=== PATIENT | female | born 1985 | race Caucasian/White ===

== ENCOUNTER 2017-04-25 16:54 | Outpatient (CLI) | payer OTHER | END 2017-04-25 23:00 | LOC: LAB SRH 16:54 | DX: Z34.80 Encounter for supervision of other normal pregnancy, unspecified trimester (principal) | CPT/HCPCS: 90004; 90074; 90078; 90148; 90261; 90364; 90469; 90599; 90600; 90605; 90606; 90710; 90851; 92863; 93140; 98480; 99777 ==

== ENCOUNTER 2017-06-04 22:16 | Emergency (ER) | payer OTHER ==
--- NOTE | 2017-06-04 23:58 | ED NURSING NOTES ---
Clinical Report - Nurses Formerly [facility] [address] [place] [address] 06/04/2017 22:18 Patient: GURU GIPSON TRIAGE Triage time 22:25. Acuity: LEVEL 3. Chief Complaint: FEVER, CHILLS and "NOT FEELING WELL" and FATIGUE. --22:34 Arline Hurtado R.N. 22:25 06/04/17. BP: 101/62 taken on the left arm, while lying. HR: 80 (regular and normal rate). RR: 18 (regular and unlabored). O2 saturation: 98% on room air. Temp: 98.6 F (oral). Pain level now: 04/07. --22:34 Arline Hurtado R.N. Weight: 50.3 kg stated. Height/Length: 59 inches Per Patient. BMI: 22.4. --22:30 Arline Hurtado R.N. Medications None. --22:32 Arline Hurtado R.N. Allergies Aspirin. Definite Severe(dizziness) --22:32 Arline Hurtado R.N. History Arrived by private vehicle. Historian: patient. Accompanied by family. Primary physician (wyatt). This started today. ( tired, chills, abd pain, frequent urination, 102.9 temp at 730 pm took tylenol). She has had a mild, dull, pressure-like frontal headache. The headache has been associated with nausea. The patient has a history of migraine headaches. She has had abdominal pain. ( low back pain). 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 PAST MEDICAL HX: Immunizations: up-to-date. Last normal menstrual period- February 2017. 2. Para 1. Currently : LNMP: February 2017 EDC: Dec 07, 2017. In 2nd trimester. confirmed with sonogram. Has had care by pst specialist. G 2. P 1. SOCIAL HX: Smoker- current status unknown. No alcohol use or drug use. No infectious disease exposure. No known contact with a sick individual. ABUSE ASSESSMENT: No report of abuse. SELF HARM ASSESSMENT: A self harm assessment was performed. The patient answered "no" to the question "Have you recently felt down, depressed, or hopeless?", "Have you noticed less interest or pleasure in doing things?", "Do you have thoughts of harming or killing yourself?", "Are you here because you tried to hurt yourself?", "Have you ever tried to hurt yourself before today?", "Have you recently had thoughts about harming or killing others?" and "Do you have any dangerous items in your possession?". FALL RISK ASSESSMENT: Fall risk assessment completed. No fall risk identified. NUTRITIONAL RISK ASSESSMENT: The nutritional risk assessment revealed no deficiencies. FUNCTIONAL ASSESSMENT: Functional assessment: no impairments noted. LEARNING NEEDS ASSESSMENT: The learning needs assessment revealed no barriers. --22:34 Arline Hurtado R.N. PROBLEMS: Dental Pain. Dental Caries. Contusion. LNMP - Last Normal Menstrual Period. --22:32 Arline Hurtado R.N. ADDITIONAL SURGERIES: Appendectomy. . --22:32 Arline Hurtado R.N. Interventions ID band on patient. To treatment room. --22:34 Arline Hurtado R.N. PHYSICAL ASSESSMENT Ambulatory to room. GENERAL / NEURO / PSYCH: Alert. Oriented X 4. Appears in pain. HEENT: Pupils equal, round and reactive to light. Mucous membranes are pink. RESPIRATORY: Respirations not labored. Chest nontender. Breath sounds within normal limits. CVS: Normal sinus rhythm noted. Capillary refill less than 2 seconds. Pulses within normal limits. GI / : Abdomen soft and normal bowel sounds. Abdominal tenderness in the suprapubic area. SKIN: Skin intact. Skin is warm and dry. Normal skin turgor. --22:35 Arline Hurtado R.N. NURSING PROGRESS NOTES Pulse oximeter and NIBP monitor placed on patient. Patient gowned. Reassurance given to the patient. Two patient identifiers checked. Call light placed in reach. Side rails up x 1. Bed placed in lowest position. Brakes of bed on. Patient ready for evaluation- chart flagged. --22:35 Arline Hurtado R.N. Patient ID band checked for patient name and birthdate: patient confirmed. Instructions provided to collect clean catch urine and patient verbalized understanding. Clean catch urine collected with return of yellow-colored cloudy urine; sample sent to lab for urinalysis and culture. Specimen labeled in the presence of the patient. --22:36 Arline Hurtado R.N. 22:48 06/04/2017 Site #1 started via IV in the right antecubital space with an 20g angiocath, with aseptic technique and good blood return; one attempt. Blood drawn: rainbow set. Labeled in the presence of the patient and sent to the lab. Saline lock flushed with 10 mL saline. --22:55 Arline Hurtado R.N. 22:50 06/04/2017 Started bag #1 1000 mL IV Fluids IV NS (Saline); bolus of 1000 mL wide open then over 1 hour(s) via site #1. Allergies verified and confirmed 5 rights. IV patency established. IV site checked: no pain, redness, or swelling. IV flushed thoroughly pre- and post-medication administration. --22:55 Arline Hurtado R.N. 23:50 06/04/2017 IV Fluids IV NS Discontinued: bag #1. Total amount infused: 1000 mL. --00:14 Coreen Funes 00:13 06/05/2017 Started 1 gm of Ceftriaxone IVPB in bag #1 50 mL; at 150 mL/hr over 20 minute(s) via site #1 via IV pump. Allergies verified and confirmed 5 rights. IV patency established. IV site checked: no pain, redness, or swelling. IV flushed thoroughly pre- and post-medication administration. --00:13 Coreen Funes 00:23 06/05/2017 Ceftriaxone IVPB Discontinued: bag #1. Total amount infused: 50 mL. --00:35 Coreen Funes 00:35 06/05/2017 Site #1 removed upon discharge. Catheter intact. Pressure dressing applied. --00:35 Coreen Funes. DISPOSITION / DISCHARGE 00:37 06/05/17. Departure time: 00:Jun 05 2017. Condition at departure: improved. The goals identified in the patient's plan of care were met. No learning barriers present. Discharge instructions provided and reviewed with the patient. Reviewed warnings (Patient verbalized awareness of warning s/sx listed in dc paperwork.). Reviewed medication(s) side effects, precautions, dosing and course information. Prescription(s) given to the patient (Keflex.). Treatments reviewed. Reviewed referral to a primary care physician for followup. Patient verbalized understanding. Written instructions provided in Yoruba. The patient was discharged by the physician. She was discharged home and accompanied by family. She left the Emergency Department ambulatory and via private vehicle. Patient driving. FALL RISK ASSESSMENT: Fall risk assessment completed. No fall risk identified. --00:37 Coreen Funes 00:35 06/05/17. BP: 91/51. HR: 67. RR: 17. O2 saturation: 98%. Temp: 98.4 F. Pain level now: 0. --00:37 Coreen Funes. Locked/Released at 06/05/2017 0:39 by Coreen Funes,
--- NOTE | 2017-06-04 23:58 | ED CLINICAL REPORT ---
Clinical Report - Physicians/Mid Levels [facility] [address] [place] [address] 06/04/2017 22:18 Patient: GURU GIPSON Time Seen: 22:23; initial patient contact. Arrived- By private vehicle. Historian- patient. HISTORY OF PRESENT ILLNESS Chief Complaint: FEVER. Temperature treated prior to arrival with tylenol. This started today and is still present. She has had measured fever of 102.9 F orally. No muscle aches, dyspnea, cough, decreased oral intake or diarrhea. She has had fatigue. No decreased urine output. Additional history - No known contact with a sick individual. Has not recently been ill. She is not immunocompromised. Similar symptoms previously: None. Recent medical care: Not recently seen/assessed. REVIEW OF SYSTEMS No nausea, constipation, flank pain or vomiting. She has had abdominal pain, pelvic pain and difficulty with urination. The patient has had urinary frequency. All systems otherwise negative, except as recorded above. PAST HISTORY Dental Pain. Dental Caries. Contusion. ADDITIONAL SURGERIES: Appendectomy. . SOCIAL HISTORY Smoker - current status unknown. No alcohol use or drug use. ADDITIONAL NOTES The nursing notes have been reviewed. PHYSICAL EXAM Vital Signs: 06/04/2017 22:25 BP: 101/62. HR: 80. RR: 18. O2 saturation: 98%. Temp: 98.6 F. Pain level now: 5/10. Have been reviewed as normal. Appearance: Alert. No acute distress. Eyes: Eyes normal inspection. ENT: Dry mucous membranes present. CVS: Normal heart rate and rhythm. Heart sounds normal. Respiratory: No respiratory distress. Breath sounds normal. Abdomen: Soft. Mild tenderness in the suprapubic area. No guarding or rebound tenderness. Bowel sounds normal. No mass. Back: Normal inspection. No CVA tenderness. Skin: Skin warm and dry. Normal skin color. No rash. Neuro: Oriented X 3. LABS, X-RAYS, AND EKG Laboratory Tests: UA-Culture if indicated: (CYNDIE: 06/04/2017 22:23) ( MsgRcvd 06/04/2017 22:56) Final results Test Result Flag Units (Reference) URINE COLOR YELLOW URINE APPEARANCE TURBID URINE GLUCOSE NEGATIVE (NEGATIVE) URINE BILIRUBIN NEGATIVE (NEGATIVE) URINE KETONE 3+ (NEGATIVE) URINE SPECIFIC GRAVITY 1.015 (1.010-1.030) URINE PH 6.5 (5.0-8.0) URINE PROTEIN 2+ (NEGATIVE) URINE UROBILINOGEN 0.2 EU/dL (0.2-1.0) URINE NITRITE POSITIVE (NEGATIVE) URINE BLOOD 3+ (NEGATIVE) URINE LEUK ESTERASE POSITIVE (NEGATIVE) URINE RBC 10-25 rbc/hpf (0-1) URINE WBC >100 wbc/hpf (0-1) URINE EPITHELIAL CELLS 0-1 EPI/hpf (0-5) URINE BACTERIA MANY (4+) (NONE SEEN) URINE COMMENT CULTURE INDICATED URINE CULTURES ARE SET-UP BASED ON THE FOLLOWING CRITERIA:POSITIVE NITRITEPOSITIVE LEUKOCYTE ESTERASEGREATER THAN 10 WHITE BLOOD CELLSMODERATE (2+) OR GREATER BACTERIA Urine: (CYNDIE: 06/04/2017 22:23) ( [facility] 06/04/2017 22:55) Final results Test Result Flag Units (Reference) URINE POSITIVE CBC w Diff: (CYNDIE: 06/04/2017 22:48) ( [facility] 06/04/2017 23:01) Final results Test Result Flag Units (Reference) WHITE BLOOD COUNT 11.2 K/uL (4.5-11.5) RED BLOOD COUNT 3.21 L M/uL (4.00-5.20) HEMOGLOBIN 10.0 L gm/dL (12.0-16.0) HEMATOCRIT 29.4 L % (36.0-46.0) MEAN CELL VOLUME 92 fL (80-100) MEAN CORPUSCULAR HGB 31 pg (26-34) MEAN CORPUSCULAR HGB CONC 34 g/dL (31-37) RED CELL DISTRIBUTION WIDTH 12.9 % (11.6-14.8) PLATELET COUNT 178 K/uL (150-400) LYMPH % 7.0 L % (25-40) MONO % 6.6 % (3-14) GRANULOCYTE % 86.4 % (53-90) CMP: (CYNDIE: 06/04/2017 22:48) ( MdgRcvd 06/04/2017 23:13) Final results Test Result Flag Units (Reference) GLUCOSE 94 mg/dL (70-110) BUN 4 L mg/dL (7-18) CREATININE 0.7 mg/dL (0.6-1.3) Estimated GFR >60 mL/min Estimated GFR- >60 mL/min Note: Persistent reduction over 3 months in eGFR<60 mL/min/1.73 m2 defines CKD. Patients with eGFR values>=60 mL/min/1.73 m2 may also have CKD if evidence ofpersistent proteinuria. Additional information may be foundat www.kidney.org. SODIUM 138 mmol/L (136-145) POTASSIUM 3.5 mmol/L (3.5-5.1) CHLORIDE 103 mmol/L (98-107) CARBON DIOXIDE 24 mmol/L (21-32) CALCIUM 8.5 mg/dL (8.5-10.1) TOTAL PROTEIN 6.8 g/dL (6.4-8.2) ALBUMIN 3.1 L g/dL (3.3-5.0) BILIRUBIN, TOTAL 0.6 mg/dL (0.0-1.0) ALKALINE PHOSPHATASE 44 L U/L (46-116) AST (SGOT) 15 U/L (15-37) ALT (SGPT) 10 L U/L (12-78) Culture, Urine: (CYNDIE: 06/04/2017 22:23) ( [facility] 06/05[facility] 09[facility]01) IP Test Result Flag Units (Reference) CULTURE, URINE DATE: 06/05/17 PRELIM REPORT: PRELIMINARY REPORT #1 VERY EARLY GROWTH: VERY EARLY GROWTH: CULTURE TOO YOUNG FOR WORKUP-REINCUBATED . PROGRESS AND PROCEDURES Disposition: Discharged home in good and improved condition. Condition: good. CLINICAL IMPRESSION Acute urinary tract infection with cystitis. INSTRUCTIONS Prescription Medications: Keflex 500 mg: take 1 capsule orally every 12 hours for 3 days. No refill. Substitution is permissible. Follow-up: Follow up with your doctor in about three days. Call for an appointment. Screening today revealed the patient's blood pressure to be in the normal range. (Electronically signed by Genaro Maciel Dr. 06/05/2017 9:24)
--- NOTE | 2017-06-04 23:58 | ED ORDER SUMMARY ---
..... Patient: GURU GIPSON OrderSheet [facility] VisitID: [id number] [place] [address] 31y, F Registration Date/Time: 06/04/2017 ORDER SHEET Weight: 50.3 kg (stated) Allergies: Aspirin GENERAL ORDERS: UA-Culture if indicated Urgent (22:36 06/04/2017 CBrebecca R.NMorelia per protocol) (22:36 Randy R.N.) CBC w Diff Urgent (22:49 06/04/2017 Sommer Velasco) (Ack 22:53 [facility] Life Skills Coordinator) (22:54 Randy RMoreliaN.) CMP Urgent (22:49 06/04/2017 Sommer Velasco) (Ack 22:53 [facility] Life Skills Coordinator) (22:54 Randy R.N.) Urine Urgent (22:49 06/04/2017 Sommer Velasco) (Ack 22:53 [facility] Life Skills Coordinator) (22:54 Randy R.N.) MEDICATION ORDERS: IV FLUIDS: IV NS : initial bolus none -, then 1000 mL/hr for X1 (NOW) (22:49 06/04/2017 Sommer Velasco) (22:55 Randy RMoreliaN.) Ceftriaxone IV 1 gm/50mL (NOW) (23:52 06/04/2017 Sommer Velasco) (Ack 0:05 ASchmuck) (0:13 ASchmuck) ORDER SHEET NOTES: [Electronically signed by Coreen Funes (00:39 06/05/2017)] [Electronically signed by Genaro Maciel Dr. (09:24 06/05/2017)] [Electronically locked/signed by Coreen Funes (00:39 06/05/2017)]
--- NOTE | 2017-06-04 23:58 | ED ORDER SUMMARY ---
..... Patient: GURU GIPSON OrderSheet [facility] VisitID: [id number] [place] [address] 31y, F Registration Date/Time: 06/04/2017 ORDER SHEET Weight: 50.3 kg (stated) Allergies: Aspirin GENERAL ORDERS: UA-Culture if indicated Urgent (22:36 06/04/2017 CBrebecca R.NMorelia per protocol) (22:36 Randy R.N.) CBC w Diff Urgent (22:49 06/04/2017 Sommer Velasco) (Ack 22:53 [facility] Conservation Science Teacher) (22:54 Randy RMoreliaN.) CMP Urgent (22:49 06/04/2017 Sommer Velasco) (Ack 22:53 [facility] Conservation Science Teacher) (22:54 Randy R.N.) Urine Urgent (22:49 06/04/2017 Sommer Velasco) (Ack 22:53 [facility] Conservation Science Teacher) (22:54 Randy R.N.) MEDICATION ORDERS: IV FLUIDS: IV NS : initial bolus none -, then 1000 mL/hr for X1 (NOW) (22:49 06/04/2017 Sommer Velasco) (22:55 Randy RMoreliaN.) Ceftriaxone IV 1 gm/50mL (NOW) (23:52 06/04/2017 Sommer Velasco) (Ack 0:05 ASchmuck) (0:13 ASchmuck) ORDER SHEET NOTES: [Electronically signed by Coreen Funes (00:39 06/05/2017)] [Electronically signed by Genaro Maciel Dr. (09:24 06/05/2017)] [Electronically locked/signed by Coreen Funes (00:39 06/05/2017)]
--- NOTE | 2017-06-04 23:58 | ED CLINICAL REPORT ---
Clinical Report - Physicians/Mid Levels [facility] [address] [place] [address] 06/04/2017 22:18 Patient: GURU GIPSON Time Seen: 22:23; initial patient contact. Arrived- By private vehicle. Historian- patient. HISTORY OF PRESENT ILLNESS Chief Complaint: FEVER. Temperature treated prior to arrival with tylenol. This started today and is still present. She has had measured fever of 102.9 F orally. No muscle aches, dyspnea, cough, decreased oral intake or diarrhea. She has had fatigue. No decreased urine output. Additional history - No known contact with a sick individual. Has not recently been ill. She is not immunocompromised. Similar symptoms previously: None. Recent medical care: Not recently seen/assessed. REVIEW OF SYSTEMS No nausea, constipation, flank pain or vomiting. She has had abdominal pain, pelvic pain and difficulty with urination. The patient has had urinary frequency. All systems otherwise negative, except as recorded above. PAST HISTORY Dental Pain. Dental Caries. Contusion. ADDITIONAL SURGERIES: Appendectomy. . SOCIAL HISTORY Smoker - current status unknown. No alcohol use or drug use. ADDITIONAL NOTES The nursing notes have been reviewed. PHYSICAL EXAM Vital Signs: 06/04/2017 22:25 BP: 101/62. HR: 80. RR: 18. O2 saturation: 98%. Temp: 98.6 F. Pain level now: 5/10. Have been reviewed as normal. Appearance: Alert. No acute distress. Eyes: Eyes normal inspection. ENT: Dry mucous membranes present. CVS: Normal heart rate and rhythm. Heart sounds normal. Respiratory: No respiratory distress. Breath sounds normal. Abdomen: Soft. Mild tenderness in the suprapubic area. No guarding or rebound tenderness. Bowel sounds normal. No mass. Back: Normal inspection. No CVA tenderness. Skin: Skin warm and dry. Normal skin color. No rash. Neuro: Oriented X 3. LABS, X-RAYS, AND EKG Laboratory Tests: UA-Culture if indicated: (CYNDIE: 06/04/2017 22:23) ( MsgRcvd 06/04/2017 22:56) Final results Test Result Flag Units (Reference) URINE COLOR YELLOW URINE APPEARANCE TURBID URINE GLUCOSE NEGATIVE (NEGATIVE) URINE BILIRUBIN NEGATIVE (NEGATIVE) URINE KETONE 3+ (NEGATIVE) URINE SPECIFIC GRAVITY 1.015 (1.010-1.030) URINE PH 6.5 (5.0-8.0) URINE PROTEIN 2+ (NEGATIVE) URINE UROBILINOGEN 0.2 EU/dL (0.2-1.0) URINE NITRITE POSITIVE (NEGATIVE) URINE BLOOD 3+ (NEGATIVE) URINE LEUK ESTERASE POSITIVE (NEGATIVE) URINE RBC 10-25 rbc/hpf (0-1) URINE WBC >100 wbc/hpf (0-1) URINE EPITHELIAL CELLS 0-1 EPI/hpf (0-5) URINE BACTERIA MANY (4+) (NONE SEEN) URINE COMMENT CULTURE INDICATED URINE CULTURES ARE SET-UP BASED ON THE FOLLOWING CRITERIA:POSITIVE NITRITEPOSITIVE LEUKOCYTE ESTERASEGREATER THAN 10 WHITE BLOOD CELLSMODERATE (2+) OR GREATER BACTERIA Urine: (CYNDIE: 06/04/2017 22:23) ( [facility] 06/04/2017 22:55) Final results Test Result Flag Units (Reference) URINE POSITIVE CBC w Diff: (CYNDIE: 06/04/2017 22:48) ( [facility] 06/04/2017 23:01) Final results Test Result Flag Units (Reference) WHITE BLOOD COUNT 11.2 K/uL (4.5-11.5) RED BLOOD COUNT 3.21 L M/uL (4.00-5.20) HEMOGLOBIN 10.0 L gm/dL (12.0-16.0) HEMATOCRIT 29.4 L % (36.0-46.0) MEAN CELL VOLUME 92 fL (80-100) MEAN CORPUSCULAR HGB 31 pg (26-34) MEAN CORPUSCULAR HGB CONC 34 g/dL (31-37) RED CELL DISTRIBUTION WIDTH 12.9 % (11.6-14.8) PLATELET COUNT 178 K/uL (150-400) LYMPH % 7.0 L % (25-40) MONO % 6.6 % (3-14) GRANULOCYTE % 86.4 % (53-90) CMP: (CYNDIE: 06/04/2017 22:48) ( OkgRcvd 06/04/2017 23:13) Final results Test Result Flag Units (Reference) GLUCOSE 94 mg/dL (70-110) BUN 4 L mg/dL (7-18) CREATININE 0.7 mg/dL (0.6-1.3) Estimated GFR >60 mL/min Estimated GFR- >60 mL/min Note: Persistent reduction over 3 months in eGFR<60 mL/min/1.73 m2 defines CKD. Patients with eGFR values>=60 mL/min/1.73 m2 may also have CKD if evidence ofpersistent proteinuria. Additional information may be foundat www.kidney.org. SODIUM 138 mmol/L (136-145) POTASSIUM 3.5 mmol/L (3.5-5.1) CHLORIDE 103 mmol/L (98-107) CARBON DIOXIDE 24 mmol/L (21-32) CALCIUM 8.5 mg/dL (8.5-10.1) TOTAL PROTEIN 6.8 g/dL (6.4-8.2) ALBUMIN 3.1 L g/dL (3.3-5.0) BILIRUBIN, TOTAL 0.6 mg/dL (0.0-1.0) ALKALINE PHOSPHATASE 44 L U/L (46-116) AST (SGOT) 15 U/L (15-37) ALT (SGPT) 10 L U/L (12-78) Culture, Urine: (CYNDIE: 06/04/2017 22:23) ( [facility]) IP Test Result Flag Units (Reference) CULTURE, URINE DATE: 06/05/17 PRELIM REPORT: PRELIMINARY REPORT #1 VERY EARLY GROWTH: VERY EARLY GROWTH: CULTURE TOO YOUNG FOR WORKUP-REINCUBATED . PROGRESS AND PROCEDURES Disposition: Discharged home in good and improved condition. Condition: good. CLINICAL IMPRESSION Acute urinary tract infection with cystitis. INSTRUCTIONS Prescription Medications: Keflex 500 mg: take 1 capsule orally every 12 hours for 3 days. No refill. Substitution is permissible. Follow-up: Follow up with your doctor in about three days. Call for an appointment. Screening today revealed the patient's blood pressure to be in the normal range. (Electronically signed by Genaro Maciel Dr. 06/05/2017 9:24)
--- NOTE | 2017-06-05 09:24 | ED MAR SUMMARY ---
..... Medication Administration Record [facility] [address] [place] [address] Patient: GURU GIPSON Visit ID: [id number] 31y, F Weight: 50.3 kg Height/Length: 59 in BMI: 22.4 ALLERGIES: Aspirin Start 22:50 06/04/2017 Arline Hurtado R.N., Stop 23:50 06/04/2017 Coreen Funes, Medication Administered: IV NS (SALINE), Dose: IV Fluids over 1 hour(s), Bolus: 1000 mL wide open, Dispensed: 1000 mL bag, Site: #1 right AC. Medication Ordered: IV NS : initial bolus none -, then 1000 mL/hr for X1 (NOW). Start 00:13 06/05/2017 Coreen Funes,, Stop 00:23 06/05/2017 Coreen Funes, Medication Administered: CEFTRIAXONE [IVPB], Dose: 1 gm IVPB over 20 minute(s), Rate: 150 mL/hr, Dispensed: 50 mL bag, Site: #1 right AC. Medication Ordered: Ceftriaxone IV 1 gm/50mL (NOW).
--- NOTE | 2017-06-05 09:24 | ED DISCHARGE INSTRUCTIONS ---
Patient: GURU GIPSON General Instructions [facility] VisitID: [id number] [place] [address] 31y, F Registration Date/Time: 06/04/2017 Acute urinary tract infection with cystitis. INSTRUCTIONS Prescription Medications: Keflex 500 mg: take 1 capsule orally every 12 hours for 3 days. No refill. Substitution is permissible. Follow-up: Follow up with your doctor in about three days. Call for an appointment. Screening today revealed the patient's blood pressure to be in the normal range. ADDITIONAL INFORMATION Bladder Infection,Female (Adult) A bladder infection ("cystitis" or "UTI") usually causes a constant urge to urinate and a burning when passing urine. Urine may be cloudy, smelly or dark. There may be pain in the lower abdomen. A bladder infection occurs when bacteria from the vaginal area enter the bladder opening (urethra). This can occur from sexual intercourse, wearing tight clothing, dehydration and other factors. Home Care: Drink lots of fluids (at least 6-8 glasses a day, unless you must restrict fluids for other medical reasons). This will force the medicine into your urinary system and flush the bacteria out of your body. Avoid sexual intercourse until your symptoms are gone. Avoid caffeine, alcohol and spicy foods. These can irritate the bladder. A bladder infection is treated with antibiotics. You may also be given Pyridium (generic = phenazopyridine) to reduce the burning sensation. This medicine will cause your urine to become a bright orange color. The orange urine may stain clothing. You may wear a pad or panty-liner to protect clothing. Preventing Future Infections: Always wipe from front to back after a bowel movement. Keep the genital area clean and dry. Drink plenty of fluids each day to avoid dehydration. Both sexual partners should wash before intercourse. Urinate right after intercourse to flush out the bladder. Wear cotton underwear and cotton-lined panty hose; avoid tight-fitting pants. If you are on control pills and are having frequent bladder infections, discuss with your doctor. Follow Up: Return to this facility or see your doctor if ALL symptoms are not gone after three days of treatment. Get Prompt Medical Attention if any of the following occur: Fever of 100.4F (38C) or higher, or as directed by your healthcare provider No improvement by the third day of treatment Increasing back or abdominal pain Repeated vomiting; unable to keep medicine down Weakness, dizziness or fainting Vaginal discharge Pain, redness or swelling in the labia (outer vaginal area) Cephalexin Monohydrate Oral tablet What is this medicine? CEPHALEXIN (sef a NICO in) is a cephalosporin antibiotic. It is used to treat certain kinds of bacterial infections It will not work for colds, flu, or other viral infections. How should I use this medicine? Take this medicine by mouth with a full glass of water. Follow the directions on the prescription label. This medicine can be taken with or without food. Take your medicine at regular intervals. Do not take your medicine more often than directed. Take all of your medicine as directed even if you think you are better. Do not skip doses or stop your medicine early. Talk to your upholstery department supervisor regarding the use of this medicine in children. While this drug may be prescribed for selected conditions, precautions do apply. What side effects may I notice from receiving this medicine? Side effects that you should report to your doctor or health certified social workers in health care as soon as possible: allergic reactions like skin rash, itching or hives, swelling of the face, lips, or tongue breathing problems pain or trouble passing urine redness, blistering, peeling or loosening of the skin, including inside the mouth severe or watery diarrhea unusually weak or tired yellowing of the eyes, skin Side effects that usually do not require medical attention (report to your doctor or health certified social workers in health care if they continue or are bothersome): gas or heartburn genital or anal irritation headache joint or muscle pain nausea, vomiting What may interact with this medicine? probenecid some other antibiotics What if I miss a dose? If you miss a dose, take it as soon as you can. If it is almost time for your next dose, take only that dose. Do not take double or extra doses. There should be at least 4 to 6 hours between doses. Where should I keep my medicine? Keep out of the reach of children. Store at room temperature between 59 and 86 degrees F (15 and 30 degrees C). Throw away any unused medicine after the expiration date. What should I tell my health care provider before I take this medicine? They need to know if you have any of these conditions: kidney disease stomach or intestine problems, especially colitis an unusual or allergic reaction to cephalexin, other cephalosporins, penicillins, other antibiotics, medicines, foods, dyes or preservatives or trying to get breast-feeding What should I watch for while using this medicine? Tell your doctor or health certified social workers in health care if your symptoms do not begin to improve in a few days. Do not treat diarrhea with over the counter products. Contact your doctor if you have diarrhea that lasts more than 2 days or if it is severe and watery. If you have diabetes, you may get a false-positive result for sugar in your urine. Check with your doctor or health certified social workers in health care. You have been given the following additional information: Bladder Infection, Female (Adult) Cephalexin Monohydrate Oral tablet (Electronically signed by Genaro Maciel Dr. 06/05/2017 9:24)
--- NOTE | 2017-06-05 09:24 | ED MAR SUMMARY ---
..... Medication Administration Record [facility] [address] [place] [address] Patient: GURU GIPSON Visit ID: [id number] 31y, F Weight: 50.3 kg Height/Length: 59 in BMI: 22.4 ALLERGIES: Aspirin Start 22:50 06/04/2017 Arline Hurtado R.N., Stop 23:50 06/04/2017 Coreen Funes, Medication Administered: IV NS (SALINE), Dose: IV Fluids over 1 hour(s), Bolus: 1000 mL wide open, Dispensed: 1000 mL bag, Site: #1 right AC. Medication Ordered: IV NS : initial bolus none -, then 1000 mL/hr for X1 (NOW). Start 00:13 06/05/2017 Coreen Funes,, Stop 00:23 06/05/2017 Coreen Funes, Medication Administered: CEFTRIAXONE [IVPB], Dose: 1 gm IVPB over 20 minute(s), Rate: 150 mL/hr, Dispensed: 50 mL bag, Site: #1 right AC. Medication Ordered: Ceftriaxone IV 1 gm/50mL (NOW).
--- NOTE | 2017-06-05 09:24 | ED MED RECONCILIATION SUMMARY ---
Patient: GURU GIPSON Medication Reconciliation Report [facility] VisitID: [id number] [place] [address] 31y, F Registration Date/Time: 06/04/2017 Weight: 50.3 kg Height/Length: 59 in. BMI: 22.4 ALLERGIES: Aspirin The patient's Home Medications are listed below: NONE. The source(s) of the original Home Medication information: Not obtained. The following Medications were given to the patient in the Emergency Department: IV NS IV Fluids bolus 1000 mL wide open, administered: 06/04/2017 10:50:00 PM Ceftriaxone [IVPB] IVPB bolus 0, then 1 gm 150 mL/hr, administered: 06/05/2017 12:13:00 AM The following Medications were prescribed to the patient: Keflex 500 mg: take 1 capsule orally every 12 hours for 3 days. No refill. Substitution is permissible. -- Genaro Maciel Dr.
--- NOTE | 2017-06-05 09:24 | ED MED RECONCILIATION SUMMARY ---
Patient: GURU GIPSON Medication Reconciliation Report [facility] VisitID: [id number] [place] [address] 31y, F Registration Date/Time: 06/04/2017 Weight: 50.3 kg Height/Length: 59 in. BMI: 22.4 ALLERGIES: Aspirin The patient's Home Medications are listed below: NONE. The source(s) of the original Home Medication information: Not obtained. The following Medications were given to the patient in the Emergency Department: IV NS IV Fluids bolus 1000 mL wide open, administered: 06/04/2017 10:50:00 PM Ceftriaxone [IVPB] IVPB bolus 0, then 1 gm 150 mL/hr, administered: 06/05/2017 12:13:00 AM The following Medications were prescribed to the patient: Keflex 500 mg: take 1 capsule orally every 12 hours for 3 days. No refill. Substitution is permissible. -- Genaro Maciel Dr.
--- NOTE | 2017-06-05 09:24 | ED DISCHARGE INSTRUCTIONS ---
Patient: GURU GIPSON General Instructions [facility] VisitID: [id number] [place] [address] 31y, F Registration Date/Time: 06/04/2017 Acute urinary tract infection with cystitis. INSTRUCTIONS Prescription Medications: Keflex 500 mg: take 1 capsule orally every 12 hours for 3 days. No refill. Substitution is permissible. Follow-up: Follow up with your doctor in about three days. Call for an appointment. Screening today revealed the patient's blood pressure to be in the normal range. ADDITIONAL INFORMATION Bladder Infection,Female (Adult) A bladder infection ("cystitis" or "UTI") usually causes a constant urge to urinate and a burning when passing urine. Urine may be cloudy, smelly or dark. There may be pain in the lower abdomen. A bladder infection occurs when bacteria from the vaginal area enter the bladder opening (urethra). This can occur from sexual intercourse, wearing tight clothing, dehydration and other factors. Home Care: Drink lots of fluids (at least 6-8 glasses a day, unless you must restrict fluids for other medical reasons). This will force the medicine into your urinary system and flush the bacteria out of your body. Avoid sexual intercourse until your symptoms are gone. Avoid caffeine, alcohol and spicy foods. These can irritate the bladder. A bladder infection is treated with antibiotics. You may also be given Pyridium (generic = phenazopyridine) to reduce the burning sensation. This medicine will cause your urine to become a bright orange color. The orange urine may stain clothing. You may wear a pad or panty-liner to protect clothing. Preventing Future Infections: Always wipe from front to back after a bowel movement. Keep the genital area clean and dry. Drink plenty of fluids each day to avoid dehydration. Both sexual partners should wash before intercourse. Urinate right after intercourse to flush out the bladder. Wear cotton underwear and cotton-lined panty hose; avoid tight-fitting pants. If you are on control pills and are having frequent bladder infections, discuss with your doctor. Follow Up: Return to this facility or see your doctor if ALL symptoms are not gone after three days of treatment. Get Prompt Medical Attention if any of the following occur: Fever of 100.4F (38C) or higher, or as directed by your healthcare provider No improvement by the third day of treatment Increasing back or abdominal pain Repeated vomiting; unable to keep medicine down Weakness, dizziness or fainting Vaginal discharge Pain, redness or swelling in the labia (outer vaginal area) Cephalexin Monohydrate Oral tablet What is this medicine? CEPHALEXIN (sef a NICO in) is a cephalosporin antibiotic. It is used to treat certain kinds of bacterial infections It will not work for colds, flu, or other viral infections. How should I use this medicine? Take this medicine by mouth with a full glass of water. Follow the directions on the prescription label. This medicine can be taken with or without food. Take your medicine at regular intervals. Do not take your medicine more often than directed. Take all of your medicine as directed even if you think you are better. Do not skip doses or stop your medicine early. Talk to your freedom of information officer regarding the use of this medicine in children. While this drug may be prescribed for selected conditions, precautions do apply. What side effects may I notice from receiving this medicine? Side effects that you should report to your doctor or health before and after school daycare worker as soon as possible: allergic reactions like skin rash, itching or hives, swelling of the face, lips, or tongue breathing problems pain or trouble passing urine redness, blistering, peeling or loosening of the skin, including inside the mouth severe or watery diarrhea unusually weak or tired yellowing of the eyes, skin Side effects that usually do not require medical attention (report to your doctor or health before and after school daycare worker if they continue or are bothersome): gas or heartburn genital or anal irritation headache joint or muscle pain nausea, vomiting What may interact with this medicine? probenecid some other antibiotics What if I miss a dose? If you miss a dose, take it as soon as you can. If it is almost time for your next dose, take only that dose. Do not take double or extra doses. There should be at least 4 to 6 hours between doses. Where should I keep my medicine? Keep out of the reach of children. Store at room temperature between 59 and 86 degrees F (15 and 30 degrees C). Throw away any unused medicine after the expiration date. What should I tell my health care provider before I take this medicine? They need to know if you have any of these conditions: kidney disease stomach or intestine problems, especially colitis an unusual or allergic reaction to cephalexin, other cephalosporins, penicillins, other antibiotics, medicines, foods, dyes or preservatives or trying to get breast-feeding What should I watch for while using this medicine? Tell your doctor or health before and after school daycare worker if your symptoms do not begin to improve in a few days. Do not treat diarrhea with over the counter products. Contact your doctor if you have diarrhea that lasts more than 2 days or if it is severe and watery. If you have diabetes, you may get a false-positive result for sugar in your urine. Check with your doctor or health before and after school daycare worker. You have been given the following additional information: Bladder Infection, Female (Adult) Cephalexin Monohydrate Oral tablet (Electronically signed by Genaro Maciel Dr. 06/05/2017 9:24)
== END 2017-06-05 00:37 | disposition home or self-care (01) ==
LOC: ED SRH 22:16
DX: O23.12 Infections of bladder in pregnancy, second trimester (principal); N30.00 Acute cystitis without hematuria
CPT/HCPCS: 90004; 90025; 90100; 90148; 90469; 93070; 95059